=== PATIENT | female | born 2000 | race Caucasian/White ===

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

== ENCOUNTER 2020-04-16 16:40 | Emergency (ER) | payer BC, SELFPAY ==
[2020-04-16 16:42] VITALS: BP 118/83; PULSE 88; RESP 16; TEMP 36.4; O2SAT 100; BMI 19.3
--- NOTE | 2020-04-16 17:24 | ED.DCSUM_ITS ---
History of Present Illness Chief Complaint: Foreign Body Informant: Patient Onset: Today Maximum Severity: Mild Narrative: The patient presents with a splinter under her right long finger nail that occurred when she inadvertently struck a wood table she went to urgent care they could not remove and she comes in for evaluation she has no other complaints her tetanus is up-to-date she is right-hand dominant she is a student at the local [employer] Past Medical History - Allergies and Home Meds Allergies/Adverse Reactions: Allergies No Known Allergies Allergy (Verified 04/16/20 16:41) Primary Care Physician: [facility],Out of [Primary Care Provider] - Past Medical History: None Smoking Status: Never smoker Review of Systems General: Denies: Chills, Fever, Sweats Eyes: Denies: Visual changes - bilaterally, Diplopia ENT: Denies: Rhinorrhea, Sore throat Cardiovascular: Denies: Chest pain, Palpitations Respiratory: Denies: Dyspnea, Cough, Dyspnea on exertion Gastrointestinal: Denies: Abdominal pain, Nausea, Vomiting, Diarrhea, Melena, Hematochezia Genitourinary: Denies: Dysuria, Hematuria, Frequency Musculoskeletal: Reports: Extremity Pain. Denies: Back pain Skin: Denies: Rash, Wounds Neurological: Denies: Headache, Weakness, Numbness Physical Exam Vital Signs/Narrative: Vital Signs Temp Pulse Resp BP Pulse Ox 04/16/20 16:42 97.5 F L 88 16 118/83 H 100 General: Well nourished, Well developed, No Acute Distress Head: Normocephalic, Atraumatic Eyes: Perrl, EOMI ENT: Moist mucous membranes, No rhinorrhea Neck: Supple, Nontender Cardiovascular: Regular rate, Regular rhythm, No murmurs Respiratory: No distress, CTA bilaterally, Chest nontender Abdomen: Soft, Nontender, Nondistended, Normal bowel sounds Back: Nontender, Normal Inspection Extremities: No edema, - - Right long finger lateral nail margin there is about a 2 to 3 mm splinter just under the nail it is not retrievable with standard mechanisms as her nails are very short the nail is intact the IP DIP's MCP joint finger function pad all normal Skin: Normal color, No rash Neurological: Alert, Oriented x3, Cranial nerves II-XII grossly intact, Normal Strength, Normal Sensation Psychological: Normal affect, Normal Mood Diagnostic/Tx/Re-eval - Medical Decision Making Karla the options she wanted it removed she underwent digital block sterile prep lidocaine was used for digital block, and then once she took effect we were able to retrieve the wood splinter with 18-gauge needle tip there is no retained foreign body apparent she tolerated procedure well but I want to go home she is given wound care instructions soaks finger splint follow-up with outpatient providers return for change in symptoms or signs of infection ED Disposition - Plan for ED Patient: Diagnosis: Wood foreign body right long finger nail Instructions: ED Foreign Body Soft Tissue Removed Referrals: [facility],Out of [Primary Care Provider] - Additional Instructions: Warm soapy soaks 20 minutes 2 times a day return for signs of infection wear finger splint
[2020-04-16] MEDS: Naproxen 500 MG Tablet PO (17:51)
== END 2020-04-16 18:10 | disposition home or self-care (01) ==
LOC: ED 18:10
PROVIDERS: Emergency Provider Emergency Medicine
DX: S60.452A Superficial foreign body of right middle finger, initial encounter (principal); W45.8XXA Other foreign body or object entering through skin, initial encounter; Y93.9 Activity, unspecified; Y92.9 Unspecified place or not applicable
CPT/HCPCS: 10120; 99283